=== PATIENT | female | born 1975 | race Two or more races ===

== ENCOUNTER → 2024-11-29 | Outpatient (CLI) | payer OTHER, SELFPAY ==
--- NOTE | 2024-11-29 10:00 | XR_ITS ---
Examination: Breast ultrasound, unilateral, left complete Date and time of exam: November 30, 2019 5:10 AM INDICATIONS: Outside mammogram September 29, 2024 9 mm asymmetry inferior left breast Technique: Real-time winchester scale ultrasonographic imaging performed left breast including all 4 quadrants as well as nipple retroareolar and axillary region. Findings: 8:00 cyst 5 x 2 mm 8:00 cyst 7 x 4 mm 9:00 cyst 8 x 8 mm No solid nodules IMPRESSION: BI-RADS Category 2: Benign findings
--- NOTE | 2024-11-29 10:30 | XR_ITS ---
Examination: Diagnostic digital mammography, unilateral, left Computer aided detection 3-D breast Tomosynthesis, unilateral Date and time of exam: November 29, 2024 1017 hours INDICATIONS: Mammogram September 29, 2024 9 mm asymmetry inferior left breast Technique: Nonmagnified MLO, CC views of the left breast have been obtained, reconstructed from 3-D Tomosynthesis images. R2 computer aided detection program utilized for evaluation of suspicious masses and/or abnormal calcifications. 3-D Tomosynthesis images obtained. Findings: Contrast scattered areas of fibroglandular density Asymmetry remains inferior left breast on the MLO view Impression: BI-RADS category 3: Probably benign findings One additional 6 month left mammogram follow-up is needed to document stability of focal asymmetry left breast on the MLO view
== END | disposition home or self-care (01) ==
DX: R92.332 Mammographic heterogeneous density, left breast (principal); N64.89 Other specified disorders of breast; N60.02 Solitary cyst of left breast
CPT/HCPCS: 76641; 77061; 77065; G0279